=== PATIENT | female | born 1955 | race Hispanic/Latino ===

== ENCOUNTER → 2017-07-03 | Outpatient (CLI) | payer OTHER ==
[~2017-07-03] MED LIST: BIOT10004 PO; FISH1CAP27 PO; LATANOPROST OP; LISI10TA7 PO; PRAV40TA3 PO
== END | disposition home or self-care (01) ==
LOC: RAH 09:33
PROVIDERS: ATTEND Internal Medicine Gastroenterology
DX: M25.552 Pain in left hip (principal); M25.551 Pain in right hip; R10.2 Pelvic and perineal pain; M51.36 Other intervertebral disc degeneration, lumbar region
CPT/HCPCS: 73522; 76856

== ENCOUNTER 2017-08-05 06:57 | Day surgery (SDC) | payer OTHER ==
[~2017-08-05] VITALS: Ht 170.2 cm; Wt 86.4 kg
[~2017-08-05 06:57] MED LIST changes: -BIOT10004 PO; -FISH1CAP27 PO; -LATANOPROST OP; -LISI10TA7 PO; -PRAV40TA3 PO; +SODIUM CHLORIDE 0.9% 1000ML 1,000 ML IV ONE
[2017-08-05 07:16] VITALS: BP 125/72
[2017-08-05] MEDS ORDERED: FISH1CAP27 PO (07:36)
[2017-08-05] MEDS ORDERED: BIOT10004 PO (07:36)
[2017-08-05] MEDS ORDERED: PRAV40TA3 PO (07:36)
[2017-08-05] MEDS ORDERED: LISI10TA7 PO (07:36)
[2017-08-05] MEDS ORDERED: LATANOPROST OP (07:36)
[2017-08-05 09:13] VITALS: BP 105/59
== END 2017-08-05 09:38 | disposition home or self-care (01) ==
LOC: ENDO 06:57 → DAH 06:57 → ENDO 09:38
PROVIDERS: ATTEND Internal Medicine Gastroenterology
DX: Z12.11 Encounter for screening for malignant neoplasm of colon (principal); I10 Essential (primary) hypertension; M19.90 Unspecified osteoarthritis, unspecified site; F32.9 Major depressive disorder, single episode, unspecified; H40.89 Other specified glaucoma; E78.5 Hyperlipidemia, unspecified; Z90.710 Acquired absence of both cervix and uterus; Z79.899 Other long term (current) drug therapy
CPT/HCPCS: A4606; G0121; J7030

== ENCOUNTER → 2022-11-19 | Outpatient (CLI) | payer OTHER ==
[~2022-11-19] MED LIST changes: +BIOT10004 PO; +FISH1CAP27 PO; +LATANOPROST OP; +LISI10TA24 PO; +PRAV40TA3 PO; -SODIUM CHLORIDE 0.9% 1000ML 1,000 ML IV ONE
== END | disposition home or self-care (01) ==
LOC: SHCH 11:05
PROVIDERS: ATTEND Internal Medicine
DX: I11.9 Hypertensive heart disease without heart failure (principal); R00.2 Palpitations
CPT/HCPCS: 93306